=== PATIENT | male | born 1960 | race Caucasian/White ===

== ENCOUNTER → 2024-07-09 08:15 | Outpatient (REF) | payer OTHER, SELFPAY | LOC: DHCBC/DCA 08:15 | PROVIDERS: ATTENDING PHYSICIAN Nurse Practitioner Gerontology; FAMILY PHYSICIAN Family Medicine | DX: R07.89 Other chest pain (principal); I25.10 Atherosclerotic heart disease of native coronary artery without angina pectoris | CPT/HCPCS: 78452; 93017; A9500 ==

== ENCOUNTER 2024-07-16 09:48 | Day surgery (SDC) | payer OTHER, SELFPAY ==
[2024-07-16] VITALS (12 sets, daily range): BP systolic 112–152; BP diastolic 59–73; BMI 31.5
[2024-07-16 10:26] LABS: Hematocrit 49.2 % (39.0-52.0); Hemoglobin 17.1 g/dL (13.0-18.0); Mean Corp Hgb Conc. 34.8 g/dL (33.0-37.0); Mean Corpuscular Hgb 30.2 pg (27.0-31.0); Mean Corpuscular Volume 86.8 fL (80.0-94.0); Mean Platelet Volume 10.4 fL (7.4-10.4); Platelet Count 184 10^3/uL (130-400); Red Blood Cell Count 5.67 10^6/uL (4.70-6.10); Red Cell Dist. Width 12.8 % (11.5-14.5)
[2024-07-16 10:41] LABS: ALT (SGPT) 40 U/L (0-50); AST (SGOT) 43 U/L (17-59); Albumin 4.8 g/dl (3.5-5.0); Alkaline Phosphatase 48 U/L (38-126); Blood Urea Nitrogen 16 mg/dl (9-20); Calcium 9.5 mg/dl (8.4-10.2); Carbon Dioxide 29 mmol/L (22-30); Chloride 102 mmol/L (98-107); Estimated Creatinine Clearance 109 ml/min; Glucose 112 mg/dl (70-99); Potassium 4.2 mmol/L (3.5-5.1); Sodium 139 mmol/L (135-145); Total Bilirubin 0.6 mg/dl (0.2-1.3); Total Protein 7.1 g/dl (6.3-8.2); eGFR > 60.00
[2024-07-16 11:12] LABS: ACT-LR - POC 327 Seconds (116-155)
--- NOTE | 2024-07-16 18:09 | ITS.CL.PN ---
[employer] - Procedure Note
Procedure
Procedure Note:
CARDIAC CATHETERIZATION REPORT
Date of Procedure: 07/16/2024
Referring: Dr. Jez Moreno MD
Indication: atypical angina, positive cardiac stress test
PROCEDURE(S)
1. left heart catheterization
2. coronary angiography
ACCESS: 6F right radial artery (closure: radial band)
CATHETERS
1. 6F JL3.5
2. 6F JR4
3. EBU3.5 guide
HEMODYNAMIC DATA
LV 110/10 (EDP 19) mmHg
AO 100/51 (mean 67) mmHg
CORONARY ANGIOGRAPHY
Dominance: right
LM: Large, normal
LAD: Large vessel giving rise to a small high rising D1/ramus, moderate caliber D2, and multiple septal perforators. There is a widely patent stent in the proximal vessel. There is an eccentric 40-50% stenosis proximal to the proximal stent edge
best seen in the MARINELLI cranial. This is relatively unchanged from prior angiography. This was further assessed by IFR.
LCx: Large vessel giving rise to a large OM1, moderate caliber OM2, small LPL 1, and moderate caliber LPL 2. There are trivial luminal irregularities only.
RCA: Small and nondominant, no significant disease.
RADIATION: dose 403 mGy; DAP 25.0 Gy*cm2; fluoroscopy time 4.9 min
CONCLUSIONS
1. stable coronary artery disease and a left dominant system.
2. iFR assessment of the proximal LAD was negative.
3. mildly elevated left ventricular filling pressure and no significant gradient across the aortic valve.
RECOMMENDATIONS
1. expectant management after cardiac catheterization via right radial approach
2. secondary prevention of coronary artery disease
Copy to: Dr. Jez Moreno MD (pest control operator); Dr. Jonathon Ramos MD (PCP)
Signed: Soren Henry MD, PhD
== END 2024-07-16 15:05 | disposition home or self-care (01) ==
LOC: CATH 09:48
PROVIDERS: ATTENDING PHYSICIAN Student in an Organized Health Care Education/Training Program; FAMILY PHYSICIAN Family Medicine
DX: I25.119 Atherosclerotic heart disease of native coronary artery with unspecified angina pectoris (principal); Z79.82 Long term (current) use of aspirin; Z79.899 Other long term (current) drug therapy
CPT/HCPCS: 93799; 80053; 85027; 85347; 93005; 93458; C1769; C1894; Q9967